=== PATIENT | female | born 1945 | race Caucasian/White ===

== ENCOUNTER → 2021-03-19 16:01 | Outpatient (BNVA) | payer MEDICARE, SELFPAY | PROVIDERS: PCP Internal Medicine; Visit Provider Internal Medicine Pulmonary Disease | DX: J84.112 Idiopathic pulmonary fibrosis (principal); R06.00 Dyspnea, unspecified | CPT/HCPCS: 99212 ==

== ENCOUNTER 2021-05-27 09:39 | Outpatient (REF) | payer MEDICARE, SELFPAY ==
--- NOTE | ~2021-05-27 | CT_ITS ---
EXAMINATION: CT CHEST WITHOUT CONTRAST CLINICAL INFORMATION: Idiopathic pulmonary fibrosis. COMPARISON: None TECHNIQUE: Multidetector volumetric CT imaging of the chest was done. Axial MIP volume rendering provided. Sagittal and coronal reformatted images were obtained. This CT examination was performed using dose optimization techniques as appropriate, variously including the following: *Automated exposure control *Adjustment of mA and/or kV according to patient size (this includes techniques or standardized protocols for targeted exams where dose is matched to indication/reason for exam; i.e. extremities or head) *Use of iterative reconstruction technique DLP: 378 mGy-cm FINDINGS: LUNGS: There are mild increased peripheral interstitial markings with increased peripheral reticulation and peripheral ground-glass attenuation. This is seen diffusely throughout the lungs. No traction bronchiolectasis or honeycombing is seen. There is a 3 mm right upper lobe nodule axial image 166 series 5. There is a 2 mm right upper lobe nodule axial image 171 series 5. There is a 4 mm peripheral or subpleural right upper lobe nodule adjacent to the major fissure axial image 206 series 5. There is a 2 mm calcified left upper lobe nodule axial image 198 series 5. There are small scattered peripheral parenchymal calcifications, largest measuring 1-2 mm probably related to interstitial lung disease. No endobronchial or endotracheal lesion is seen. MEDIASTINUM: There are small mediastinal lymph nodes. No enlarged lymph nodes are seen. The heart does not appear enlarged. There is mild coronary artery calcification. The pulmonary arteries are prominent, main pulmonary artery measuring 3.6 cm. There is no pericardial effusion. The visualized thyroid gland is unremarkable. PLEURA: There is no pleural effusion. No pleural mass or thickening. AXILLA: No enlarged axillary lymph nodes are seen. There is postsurgical change to the right breast with small clip and likely area of fat necrosis. No other chest wall mass is seen. UPPER ABDOMEN: There may be diverticulosis of the colon. OSSEOUS STRUCTURES: There is curvature of the thoracic spine to the right and degenerative changes. CT/CT chest wo con IMPRESSION: Mild peripheral interstitial lung disease. Prominent pulmonary arteries questionable for pulmonary artery hypertension. Coronary artery calcification. Diverticulosis of the colon.
== END 2021-05-27 09:40 | disposition home or self-care (01) ==
LOC: HO.CT 09:39
PROVIDERS: PCP Internal Medicine; Visit Provider Internal Medicine Pulmonary Disease
DX: J84.112 Idiopathic pulmonary fibrosis (principal)
CPT/HCPCS: 71250

== ENCOUNTER 2021-06-17 12:54 | Outpatient (REF) | payer MEDICARE, SELFPAY ==
--- NOTE | 2021-06-17 14:44 | PFT_ITS ---
Forced vital capacity and FEV1 are both moderately decreased. PCI90-24 and MVV are normal. Postbronchodilator therapy, there is a moderate increase in KTS45-55. Total lung capacity moderately decreased. Residual volume is markedly decreased probably related to exogenous obesity. Diffusion capacity is markedly decreased. CONCLUSION: There is evidence of moderately severe restrictive pulmonary disorder. No significant obstructive disorder noted, but there is exaggerated response to bronchodilator therapy in [id number]. This may indicate some bronchospastic disorder involving smaller airways. Clinical correlation is recommended. MD IGOR Brisneo/MODL / [id number]
== END 2021-06-17 12:55 | disposition home or self-care (01) ==
LOC: HO.RESP 12:54
PROVIDERS: PCP Internal Medicine; Visit Provider Internal Medicine Pulmonary Disease
DX: J84.112 Idiopathic pulmonary fibrosis (principal)
CPT/HCPCS: 94060; 94727; 94729; 99212

== ENCOUNTER → 2022-02-03 09:05 | Outpatient (BNVA) | payer MEDICARE, SELFPAY | PROVIDERS: PCP Internal Medicine; Visit Provider Internal Medicine Pulmonary Disease | DX: J84.112 Idiopathic pulmonary fibrosis (principal); G47.33 Obstructive sleep apnea (adult) (pediatric) | CPT/HCPCS: 94618; 99212 ==

== ENCOUNTER → 2022-03-11 08:11 | Outpatient (REF) | payer MEDICARE, SELFPAY ==
--- NOTE | 2022-03-11 08:16 | CA_ITS ---
Transthoracic Echocardiogram Patient (Last, First, Middle): Ryan Montague M Gender: Female Date of : 1945 Age: 76 Procedure Date: 03/11/2022 Procedure Type: Transthoracic Echocardiogram Location: OP Height: 180.34 cm Weight: 120.2 kg BSA: 2.38 m2 Heart Rate: bpm BP: 130 / 82 mmHg Car Pincher: TO Referring MD: Fitz Montana MD Symptoms: R06.00 - Dyspnea, unspecified Study Quality: Fair ECG Rhythm: Sinus Conclusions: - The left ventricular systolic function is normal. The calculated ejection fraction is 57% by biplane method. - No obvious valvular pathology seen on this study. Findings Left Ventricle Normal left ventricular cavity size. There is normal left ventricular wall thickness. The left ventricular systolic function is normal. The calculated ejection fraction is 57% by biplane method. There is no evidence of regional wall motion abnormalities. Diastolic function is normal for age. Right Ventricle Normal right ventricular cavity size and systolic function. Atria Both atria are normal in size. Aortic Valve There is a normal trileaflet aortic valve. There is mild calcification of the aortic valve. There is no aortic valve stenosis. There is no aortic valve regurgitation. Mitral Valve The mitral valve appears normal. There is mild anterior mitral leaflet thickening. There is no mitral valve regurgitation. There is no mitral valve stenosis. Pulmonic Valve The pulmonic valve is likely normal. Tricuspid Valve There is trace tricuspid valve regurgitation. The pulmonary artery systolic pressure is normal. Great Vessels The asc aorta is normal in size. Venous The inferior vena cava was not well visualized. Pericardium/Pleural There is no evidence of pericardial effusion. Prior Study Comparison No prior study available for comparison. Recommendations, Care & Conclusions No obvious valvular pathology seen on this study. Measurements 2D Linear Measurements IVSd: 1.02 0.6-0.9/0.6-1.0 cm LVIDd: 4.04 3.9-5.3/4.2-5.9 cm LVIDd Index: 1.70 2.4-3.2/2.2-3.1 cm/m2 LVIDs: 3.22 2.0-3.6 cm LVPWd: 0.98 0.7-1.1 cm LA Diam: 3.00 2.7-3.8/3.0-4.0 cm LAIDs Index: 1.26 1.5-2.3 cm/m2 LV Mass: 160.24 67-162/88-224 g LV Mass Index: 67.33 43-95/49-115 g/m2 LVOT Diam: 2.20 3.0+(-)1.3 cm 2D Systolic Function EF 4C: 55.20 >55% EF 2C: 58.60 >55% EF BiP: 57.20 >55% Mitral Valve MV Pk E: 0.64 MV PK A: 1.06 MV Decel Time: 176.00 E/A: 0.60 E'Lateral: 6.64 E'Medial: 5.33 E/E' Med: 12.00 E/E' Lat: 9.60 PHT: 52.00 MVA PHT: 4.23 Decel Randall: 3.62 Aortic Valve AoV Pk Nic: 1.15 AoV Mn Nic: 0.84 AoV VTI: 0.25 AoV Pk Grad: 5.00 Aov Mn Grad: 3.00 KWAME Cont.VTI: 2.73 LVOT LVOT Pk Nic: 0.84 LVOT Mn Nic: 0.63 LVOT VTI: 0.18 LVOT Pk Grad: 3.00 LVOT Mn Grad: 2.00 LVOT Diam: 2.20 LVOT Area: 3.80 Diastolic Function MV Pk E: 0.64 MV Pk A: 1.06 E/A: 0.60 E'Medial: 5.33 E/E' Med: 12.00 E' Laterial: 6.64 E/E' Lat: 9.60 Right Ventricle TAPSE (mm): 20.30 TVS' Nic: 10.40 Tricuspid Valve TR Pk Nic: 2.65 TR Pk Grad: 28.00 Great Vessels Aorta Sinus of Valsalva: 3.88 2.0-3.[address] Ridge: 2.90 1.7-3.4 cm Ao Asc: 3.80 2.1-3.4 cm Updated in Other Vendor System with Status of Final Eduin Shelton MD electronically signed on 03/12/2022 2:54:40 PM with status of Final
--- NOTE | 2022-03-11 08:16 | CA_ITS ---
Acquisition Time: 2022-03-11 09:35:38 Total Exercise Time: 00:02:30 Test Indications: Dyspnea Medications: FUROSEMIDE ALBUTEROL OFEV Protocol: YUKI Max HR: 131 BPM 90% of Pred: 145 BPM Max BP: 144/074 mmHG Max Work Load: 4.6 METS Exercise stress test with exercise 2 min 30 sec of Yuki protocol, achieving 90% of MPHR, 4.4 METs, with moderate sob and fatigue with request to stop exercise, no chest discomfort, without arrythmia during exercise, with multifocal PVCs noted in early recovery, with normotensive response to exercise, without EKG changes meeting criteria for ischemia however with suboptimal exercise time. In recovery he sob and fatigue resolved. Test reviewed with Dr Shelton. Referred By: Fitz Montana Overread By: ILEANA CINTRON
== END ==
LOC: HO.CARD 08:11
PROVIDERS: PCP Internal Medicine; Visit Provider Internal Medicine Pulmonary Disease
DX: R06.00 Dyspnea, unspecified (principal); G47.33 Obstructive sleep apnea (adult) (pediatric)
CPT/HCPCS: 93017; 93306; 95806

== ENCOUNTER → 2022-03-13 09:45 | Outpatient (BNVA) | payer MEDICARE, SELFPAY | PROVIDERS: PCP Internal Medicine; Visit Provider Internal Medicine Pulmonary Disease | DX: J84.112 Idiopathic pulmonary fibrosis (principal); R06.00 Dyspnea, unspecified; G47.33 Obstructive sleep apnea (adult) (pediatric) | CPT/HCPCS: 99212 ==